=== PATIENT | female | born 1980 | race Caucasian/White ===

== ENCOUNTER 2017-10-31 08:32 | Emergency (ER) | payer SELFPAY ==
[2017-10-31 08:47] LABS: URINE APPEARANCE SL CLOUDY; URINE BILIRUBIN NEGATIVE (NEGATIVE); URINE BLOOD LARGE (NEGATIVE); URINE COLOR YELLOW; URINE GLUCOSE (UA) NEGATIVE (NEGATIVE); URINE KETONE TRACE (NEGATIVE); URINE LEUKOCYTE ESTERASE MODERATE (NEGATIVE); URINE NITRITE POSITIVE (NEGATIVE); URINE UROBILINOGEN 0.2 E.U./dL (0.20 - 1.00)
--- NOTE | 2017-10-31 08:54 | Emergency Department Record ---
History of Present Illness - General Chief complaint: Female Urogenital Problem Stated complaint: UTI Time Seen by Provider: 10/31/17 08:43 Source: Patient Mode of Arrival: Ambulatory Limitations: No limitations - History of Present Illness Initial comments: The patient is here due to dysuria for 5 days. She states she has had some back pain and fever but it is improved today. There is no reported AP, nausea, or vomiting. MD Complaint: Dysuria Onset/Timin -: Days(s) Severity: Moderate Severity scale (1-10): 5 Quality: Other Consistency: Constant Improves with: Medication Worsens with: Other Patient : No Associated Symptoms: Dysuria - Related Data Previous Rx's Medication Instructions Recorded Sulfamethoxazole/Trimethoprim 1 tab PO BID #14 tab 10/31/17 [Bactrim Ds] Allergies Allergy/AdvReac Type Severity Reaction Status Date / Time No Known Drug Allergies Allergy Verified 10/31/17 08:40 Travel Screening - Travel/Exposure Within Last 30 Days Have you traveled within the last 30 days?: No - Travel/Exposure Within Last Year Have you traveled outside the [place] in the last year?: No - Additonal Travel Details Have you been exposed to anyone with a communicable illness?: No - Travel Symptoms Symptom Screening: None Review of Systems Constitutional: Denies: Chills, Fever Eyes: Denies: Eye discharge ENT: Denies: Congestion Respiratory: Denies: Cough, Dyspnea Past Medical History - SOCIAL HISTORY Smoking Status: Current every day smoker Alcohol Use: Heavy Drug Use: None - RESPIRATORY Hx Respiratory Disorders: No - CARDIOVASCULAR Hx Cardio Disorders: No - NEURO Hx Neuro Disorders: No - GI Hx GI Disorders: No - Hx Genitourinary Disorders: No - ENDOCRINE Hx Endocrine Disorders: No - MUSCULOSKELETAL Hx Musculoskeletal Disorders: No - PSYCH Hx Psych Problems: No - HEMATOLOGY/ONCOLOGY Hx Hematology/Oncology Disorders: No Family Medical History Any Significant Family History?: No Physical Exam - General General Appearance: Alert, Oriented x3, Cooperative, No acute distress - Head Head exam: Atraumatic, Normocephalic, Normal inspection - Eye Eye exam: Normal appearance, PERRL - Neck Neck exam: Normal inspection, Full ROM. negative: Tenderness - Respiratory Respiratory exam: Normal lung sounds bilaterally. negative: Respiratory distress - Cardiovascular Cardiovascular Exam: Regular rate, Normal rhythm, Normal heart sounds - GI/Abdominal GI/Abdominal exam: Soft, Normal bowel sounds. negative: Guarding, Pulsatile mass, Rebound, Rigid, Tenderness - Extremities Extremities exam: Normal inspection, Full ROM, Normal capillary refill. negative: Tenderness - Back Back exam: Reports: Normal inspection, Full ROM. Denies: CVA tenderness (R), CVA tenderness (L), Muscle spasm, Rash noted, Tenderness Course Vital Signs 10/31/17 08:41 Temperature 97.7 F Pulse Rate 103 H Respiratory 20 Rate Blood Pressure 132/88 Pulse Ox 100 - Reevaluation(s) Reevaluation #1: I did explain to the patient that it appears she has a UTI. She is to take the Abx and F/U with her PCP if not better. 10/31/17 09:22 Medical Decision Making - Data Complexity MDM Data: Labs Ordered and/or Reviewed (Pos UTI.) Disposition Disposition: Discharge Clinical Impression: Cystitis Disposition: Home, Self-Care Condition: (2) Stable Instructions: Urinary Tract Infection in Women (ED) Additional Instructions: Please take the Bactrim as directed and use Tylenol or Motrin for pain and fever. Please drink plenty of fluids and see your PCP early next week if not better. Return to the ER for any worsening symptoms, pain, fever, or vomiting. Prescriptions: Sulfamethoxazole/Trimethoprim [Bactrim Ds] 1 tab PO BID #14 tab Forms: Patient Portal Access Time of Disposition: 09:08 Quality - Quality Measures Quality Measures: N/A - Blood Pressure Screening View Details: Yes Does Patient Have Any of the Following: No Blood Pressure Classification: Pre-Hypertensive BP Reading Systolic Measurement: 132 Diastolic Measurement: 88 Screening for High Blood Pressure: < Pre-Hypertensive BP, F/U Documented > [ G8950] Pre-Hypertensive Follow-up Interventions: Referral to alternative/primary care provider.
[2017-10-31 08:58] LABS: URINE EPITHELIAL CELLS 21 - 35 (FEW); URINE MUCUS LIGHT; URINE WBC >50 (0-2/hpf)
[2017-10-31 09:05] LABS: HCG,QUALITATIVE URINE NEGATIVE (NEGATIVE)
== END 2017-10-31 09:10 | disposition home or self-care (01) ==
LOC: ER 08:32
DX: N30.01 Acute cystitis with hematuria (principal)
CPT/HCPCS: 81001; 81025; 99282

== ENCOUNTER 2018-05-10 18:43 | Emergency (ER) | payer MEDICAID ==
--- NOTE | 2018-05-10 19:08 | Emergency Department Record ---
History of Present Illness - General Chief Complaint: Ankle/Foot Injury Stated Complaint: R ANKLE INJURY Time Seen by Provider: 05/10/18 18:51 Source: Patient Mode of Arrival: crutches Limitations: No limitations - History of Present Illness Initial Comments: The patient was climbing a tree and jumped down and inverted her R ankle. She was able to walk on it with pain. She denies any other injuries. Complaint: Ankle injury Onset/Timin -: Hour(s) Type of Injury: Unknown Place: Home Severity scale (1-10): 9 Improves With: Immobilization Worsens With: Weight bearing Context: Jumping Associated Symptoms: Snap/pop sensation, Able to partially bear weight - Related Data Home Medications Medication Instructions Recorded Confirmed Last Taken No Home Med [NO HOME MEDS] 05/10/18 05/10/18 Unknown Allergies Allergy/AdvReac Type Severity Reaction Status Date / Time No Known Drug Allergies Allergy Verified 05/10/18 18:47 Travel Screening - Travel/Exposure Within Last 30 Days Have you traveled within the last 30 days?: Yes Location Detail:: [place] - Travel/Exposure Within Last Year Have you traveled outside the [place] in the last year?: No - Additonal Travel Details Have you been exposed to anyone with a communicable illness?: No - Travel Symptoms Symptom Screening: None Review of Systems Constitutional: Denies: Chills, Fever Eyes: Denies: Eye discharge ENT: Denies: Congestion Respiratory: Denies: Cough Past Medical History - SOCIAL HISTORY Smoking Status: Current every day smoker Alcohol Use: Heavy Drug Use: None - RESPIRATORY Hx Respiratory Disorders: No - CARDIOVASCULAR Hx Cardio Disorders: No - NEURO Hx Neuro Disorders: No - GI Hx GI Disorders: No - Hx Genitourinary Disorders: No - ENDOCRINE Hx Endocrine Disorders: No - MUSCULOSKELETAL Hx Musculoskeletal Disorders: No - PSYCH Hx Psych Problems: No - HEMATOLOGY/ONCOLOGY Hx Hematology/Oncology Disorders: No Family Medical History Any Significant Family History?: No Physical Exam - General General Appearance: Alert, Oriented x3, Cooperative, No acute distress - Head Head exam: Atraumatic, Normocephalic, Normal inspection - Eye Eye exam: Normal appearance, PERRL - Extremities Extremities exam: Full ROM, Tenderness (There is mild tenderness over the distal fibula. ), Other (The R ankle is stable with no subluxation. There is no foot tenderness or swelling. The R foot is NVI.). negative: Normal inspection ( There is mild swelling at the distal fibula. ), Joint swelling Course Vital Signs 05/10/18 05/10/18 18:44 18:48 Temperature 98.5 F 98.5 F Pulse Rate 93 H 93 H Respiratory 20 20 Rate Blood Pressure 148/85 148/85 Pulse Ox 97 97 - Reevaluation(s) Reevaluation #1: I did discuss the xray results with the patient and the need for an ankle splint and to be non weight bearing for 3 days. She is to slowly then start to ambulate and is to see her PCP if not better in 5 days. 05/10/18 19:21 05/10/18 19:30 Medical Decision Making - Data Complexity MDM Data: X-Ray Ordered and/or Reviewed (R ankle: Neg for tibia or fibula fx. There is a small avulsion of probably the talus distally. ) Disposition Disposition: Discharge Clinical Impression: Ankle sprain Qualifiers: Encounter type: initial encounter Involved ligament of ankle: unspecified ligament Laterality: right Qualified Code(s): S93.401A - Sprain of unspecified ligament of right ankle, initial encounter Disposition: Home, Self-Care Condition: (2) Stable Instructions: Ankle Sprain (ED) Additional Instructions: Please wear the splint for 3-4 days and do not walk on the R ankle. Use your crutches for walking. Take Ibuprofen for pain. Please see your family doctor if not better in 5 days and return to the ER for any worsening symptoms. Forms: Patient Portal Access Time of Disposition: 19:22 Quality - Quality Measures Quality Measures: N/A - Blood Pressure Screening View Details: Yes Does Patient Have Any of the Following: No Blood Pressure Classification: Pre-Hypertensive BP Reading Systolic Measurement: 148 Diastolic Measurement: 85 Screening for High Blood Pressure: < Pre-Hypertensive BP, F/U Documented > [ G8950] Pre-Hypertensive Follow-up Interventions: Referral to alternative/primary care provider.
--- NOTE | 2018-05-12 09:56 | RADIOLOGY REPORT ---
EXAM: RIGHT ANKLE HISTORY: PAIN. TECHNIQUE: Three views of the right ankle were performed. FINDINGS: There is soft tissue swelling about the ankle joint. There is a small avulsion fracture deformity of the lateral tarsal bones. This is likely related to ligament injury. IMPRESSION: SMALL AVULSION FRACTURE DEFORMITY OF THE LATERAL TARSAL BONES. SOFT TISSUE SWELLING. JOB NUMBER: [id number] [facility]
== END 2018-05-10 19:54 | disposition home or self-care (01) ==
LOC: ER 18:43
DX: S93.401A Sprain of unspecified ligament of right ankle, initial encounter (principal); W13.8XXA Fall from, out of or through other building or structure, initial encounter; Y93.39 Activity, other involving climbing, rappelling and jumping off; Y92.007 Garden or yard of unspecified non-institutional (private) residence as the place of occurrence of the external cause
CPT/HCPCS: 99283

== ENCOUNTER 2018-05-30 17:23 | Emergency (ER) | payer MEDICAID ==
[2018-05-30] MEDS ORDERED: 0.9 % SODIUM CHLORIDE 1000ML 1,000 ML IV ONE (17:50)
[2018-05-30] MEDS ORDERED: ONDANSETRON HCL IV 4 MG/2 ML VIAL IV ONE (17:50)
--- NOTE | 2018-05-30 17:50 | Emergency Department Record ---
History of Present Illness - General Chief Complaint: Abdominal Pain Stated Complaint: FEVER,SHIVERS,STOMACH ACHE Time Seen by Provider: 05/30/18 17:43 Source: Patient Mode of Arrival: Ambulatory Limitations: No limitations - History of Present Illness Initial Comments: Pt with RLQ AP and nausea vomiting, no fever. Ate chicken from local food bank but no others ill from same. Drank "liquor" last night. This AM noted nausea and vomiting, ate sujey chicken again. Vomited. ABD surgery only tubal ligation. This afternoon at a "taco" and did not vomit, drank " a ton" of water on ride over and it "seemed to help". Pt is sexually active with new male partner without condom. No discharge. No urinary freq or pain. MD Complaint: Abdominal pain Onset/Timin -: Days(s) Location: R Flank, RLQ Radiation: Suprapubic Severity: Moderate Severity scale (1-10): 5 Quality: Cramping, Sharp Consistency: Intermittent Improves With: Nothing Worsens With: Nothing Context: Possible food poisoning Associated Symptoms: Nausea, Vomiting - Related Data Additional Female Hx Detail: Surgery Patient : No Previous Rx's Medication Instructions Recorded Metronidazole [Flagyl] 500 mg PO BID 7 Days #14 tablet 05/30/18 Sulfamethoxazole/Trimethoprim 1 each PO BID 7 Days #14 tablet 05/30/18 [Bactrim Ds Tablet] Allergies Allergy/AdvReac Type Severity Reaction Status Date / Time No Known Drug Allergies Allergy Verified 05/10/18 18:47 Review of Systems Constitutional: Denies: Chills, Fever, Weakness Eyes: Denies: Eye pain, Vision change ENT: Denies: Congestion Respiratory: Denies: Cough, Dyspnea Cardiovascular: Denies: Arrhythmia, Chest pain Endocrine: Denies: Fatigue Gastrointestinal: Reports: As per HPI Genitourinary: Denies: Abnormal menses, Discharge, Dysuria, Frequency, Urgency Musculoskeletal: Reports: Back pain. Denies: Arthralgia Skin: Denies: Bruising Neurological: Denies: Abnormal gait, Tremors Psychiatric: Denies: Anxiety Hematological/Lymphatic: Denies: Anemia Past Medical History - SOCIAL HISTORY Smoking Status: Current every day smoker Drug Use: None - RESPIRATORY Hx Respiratory Disorders: No - CARDIOVASCULAR Hx Cardio Disorders: No - NEURO Hx Neuro Disorders: No - GI Hx GI Disorders: No - Hx Genitourinary Disorders: No - ENDOCRINE Hx Endocrine Disorders: No - MUSCULOSKELETAL Hx Musculoskeletal Disorders: No - PSYCH Hx Psych Problems: No - HEMATOLOGY/ONCOLOGY Hx Hematology/Oncology Disorders: No Physical Exam - General General Appearance: Alert, Oriented x3, Cooperative, No acute distress - Head Head exam: Atraumatic - Eye Eye exam: Normal appearance, PERRL, EOMI - ENT ENT exam: Normal exam, Mucous membranes moist, Normal external ear exam, Normal orophraynx, TM's normal bilaterally - Neck Neck exam: Normal inspection - Respiratory Respiratory exam: Normal lung sounds bilaterally. negative: Rhonchi, Wheezes - Cardiovascular Cardiovascular Exam: Regular rate, Normal rhythm, Normal heart sounds - GI/Abdominal GI/Abdominal exam: Soft, Normal bowel sounds, Tenderness. negative: Guarding, Rebound (tender right flank to RLQ ) - Rectal Rectal exam: Deferred - exam: Cervical discharge, cervical motion tenderness (No mass appreciated. ) - Extremities Extremities exam: Normal inspection - Back Back exam: Reports: Normal inspection. Denies: CVA tenderness (R), CVA tenderness (L), Muscle spasm - Neurological Neurological exam: Alert, Normal gait, Oriented X3 - Psychiatric Psychiatric exam: Normal affect, Normal mood - Skin Skin exam: negative: Rash Medical Decision Making - Data Complexity MDM Data: Labs Ordered and/or Reviewed, X-Ray Ordered and/or Reviewed, Discussion of Test Results With Performing Physician - Lab Data Result diagrams: 05/30/18 17:50 05/30/18 17:50 - Radiology Data Radiology results: Report reviewed, Image reviewed Disposition Disposition: Discharge Clinical Impression: Trichomonal cervicitis, Renal colic on right side, Cervicitis Disposition: Home, Self-Care Condition: (2) Stable Instructions: Trichomoniasis (ED), Renal Colic (ED) Additional Instructions: Take Flagyl until gone. Bactrim DS BID 7 days Sexual partner to see physician for evaluation return as needed to ED FM doc recheck in 3 days. Prescriptions: Metronidazole [Flagyl] 500 mg PO BID 7 Days #14 tablet Sulfamethoxazole/Trimethoprim [Bactrim Ds Tablet] 1 each PO BID 7 Days #14 tablet Forms: Patient Portal Access Quality - Quality Measures Quality Measures: N/A - Blood Pressure Screening Does Patient Have Any of the Following: No Blood Pressure Classification: Hypertensive Reading Systolic Measurement: 143 Diastolic Measurement: 93 Screening for High Blood Pressure: Patient Exclusion, Hx of HTN [Y7948]
[2018-05-30 18:11] LABS: BASO % 0.2 % (0-6); EOS % 0.4 % (0-6); HEMATOCRIT 45.1 % (35.0-47.0); HEMOGLOBIN 15.2 gm/dl (11.6-16.0); LYMPH % 10.5 % (16-45); MEAN CELL VOLUME 98.5 fl (81-97); MEAN CORPUSCULAR HEMOGLOBIN 33.2 pg (27-33); MEAN CORPUSCULAR HGB CONC 33.7 g/dl (32-36); MEAN PLATELET VOLUME 11.3 fl (7.4-10.4); MONO % 1.3 % (0-9); PLATELET COUNT 207 K/uL (130-400); RED BLOOD COUNT 4.58 M/uL (3.80-5.40); RED CELL DISTRIBUTION WIDTH 13.7 % (11.5-14.5); WHITE BLOOD COUNT W/O DIFF 10.9 K/uL (4.2-12.2)
[2018-05-30 18:12] LABS: URINE APPEARANCE CLEAR; URINE BILIRUBIN NEGATIVE (NEGATIVE); URINE BLOOD MODERATE (NEGATIVE); URINE COLOR YELLOW; URINE GLUCOSE (UA) NEGATIVE (NEGATIVE); URINE KETONE NEGATIVE (NEGATIVE); URINE LEUKOCYTE ESTERASE MODERATE (NEGATIVE); URINE NITRITE NEGATIVE (NEGATIVE)
[2018-05-30 18:16] LABS: HCG,QUALITATIVE URINE NEGATIVE (NEGATIVE)
[2018-05-30] MEDS ORDERED: KETOROLAC 30 MG/ML VIAL IVP ONE (18:16)
[2018-05-30 18:24] LABS: BLOOD UREA NITROGEN 7 mg/dL (6-20); CREATININE 0.8 mg/dL (0.5-0.9); EST GLOMERULAR FILTRATION RATE > 60 mL/min
[2018-05-30 18:27] LABS: GLUCOSE,RANDOM 121 mg/dL (74-109)
[2018-05-30 18:29] LABS: LIPASE 16 U/L (13-60)
[2018-05-30] MEDS ORDERED: CEFTRIAXONE 250 MG VIAL IM ONE (18:35)
[2018-05-30] MEDS ORDERED: AZITHROMYCIN 500 MG TABLET PO ONE (18:36)
[2018-05-30 18:43] LABS: URINE BACTERIA 3+; URINE EPITHELIAL CELLS 0 - 2 (FEW); URINE RBC 0 - 2 (NONE SEEN); URINE WBC >50 (0-2/hpf)
[2018-05-30] MEDS ORDERED: LIDOCAINE (XYLOCAINE) 1% MPF 10MG/ML 5ML VIAL ONE (18:53)
--- NOTE | 2018-06-02 10:05 | CT SCAN REPORT ---
DATE: 05/30/2018 at 1829 hours. EXAM: CT OF THE ABDOMEN AND PELVIS WITHOUT CONTRAST. HISTORY: Right-sided abdominal pain with nausea for one day. TECHNIQUE: Routine noncontrast helical CT examination of the abdomen and pelvis is performed without oral or intravenous contrast administration. Lack of oral and intravenous contrast utilization limits evaluation of bowel and solid viscera, respectively. COMPARISON: None. FINDINGS: There is minimal dependent atelectasis in each lung base. The lung bases are otherwise clear, and there is no pleural or pericardial effusion. The heart is not enlarged. There is a possible small sliding-type hiatal hernia. The liver, spleen, pancreas, and adrenal glands are normal in appearance. The kidneys are normal in position and grossly normal in size. There is a questionable tiny, nonobstructing calculus within the lateral mid right kidney. No other nephrolithiasis is seen. No renal mass. There is moderate right perinephric fat stranding/edema. No gross hydronephrosis nor hydroureter is seen. No definite calcification noted along the course of either ureter. No intrinsic urinary bladder abnormality. The uterus is normal in position and without mass. No pelvic mass or lymphadenopathy. There is possible trace free fluid in the cul de sac. This is nonspecific. No gross bowel dilatation nor bowel wall thickening is seen. The appendix is at least partially visualized and is normal in appearance. There is a small, fat-filled umbilical hernia. No lytic or blastic bone lesion is seen. IMPRESSION: 1. MODERATE RIGHT PERINEPHRIC FAT STRANDING/EDEMA WITHOUT GROSS HYDRONEPHROSIS NOR OBSTRUCTING CALCULUS VISUALIZED. THIS APPEARANCE MAY RELATE TO CHANGES FROM RECENTLY PASSED CALCULUS. INFECTION COULD ALSO HAVE THIS APPEARANCE. 2. POSSIBLE TINY, NONOBSTRUCTING CALCULUS IN THE MID RIGHT KIDNEY. 3. NORMAL APPENDIX. 4. SMALL, FAT-FILLED UMBILICAL HERNIA. 5. TRACE FREE FLUID IN THE CUL DE SAC IS NONSPECIFIC BUT LIKELY PHYSIOLOGIC. JOB [facility]BER: [id number] [facility]
[2018-06-02 16:22] LABS: GC SPECIMEN TYPE Cervix
== END 2018-05-30 19:27 | disposition home or self-care (01) ==
LOC: ER 17:23
DX: A59.09 Other urogenital trichomoniasis (principal); N13.2 Hydronephrosis with renal and ureteral calculous obstruction; R10.13 Epigastric pain; R11.2 Nausea with vomiting, unspecified; R50.81 Fever presenting with conditions classified elsewhere; I10 Essential (primary) hypertension; F17.210 Nicotine dependence, cigarettes, uncomplicated
CPT/HCPCS: 99284 ×2; 96374; 96372; 96375; 83690; 80048; 81001; 81025; 85027; 74176; Q0111; J1885; J2405; J0696; 87210; J7030

== ENCOUNTER 2019-06-24 12:10 | Emergency (ER) | payer MEDICAID ==
[2019-06-24] MEDS ORDERED: KETOROLAC 60 MG/2 ML VIAL IM STA (12:17)
--- NOTE | 2019-06-24 12:35 | Emergency Department Record ---
History of Present Illness - General Chief complaint: Dental Stated complaint: TOOTH PAIN Time Seen by Provider: 06/24/19 12:17 Source: Patient, RN notes reviewed - History of Present Illness Initial comments: dental pain lower right last molar and the tooth is deayed badly. Patient doesn't remember the name of her dentists and it has been along time since she was seen by the dentist. - Related Data Previous Rx's Medication Instructions Recorded Naproxen [Naprosyn] 500 mg PO Q12H #20 tab. 06/24/19 Penicillin V Potassium 500 mg PO QID #40 tablet 06/24/19 Allergies Allergy/AdvReac Type Severity Reaction Status Date / Time No Known Drug Allergies Allergy Verified 06/24/19 12:32 Review of Systems Reviewed: No additional complaints except as noted below Constitutional: Reports: As per HPI. Denies: Chills, Fever, Malaise, Night sweats, Weakness, Weight change Eyes: Reports: As per HPI. Denies: Eye discharge, Eye pain, Photophobia, Vision change ENT: Reports: As per HPI. Denies: Congestion, Dental pain, Ear pain, Epistaxis, Hearing loss, Throat pain Respiratory: Reports: As per HPI. Denies: Cough, Dyspnea, Hemoptysis, Stridor, Wheezes Cardiovascular: Reports: As per HPI. Denies: Arrhythmia, Chest pain, Dyspnea on exertion, Edema, Murmurs, Orthopnea, Palpitations, Paroxysmal nocturnal dyspnea, Rheumatic Fever, Syncope Endocrine: Reports: As per HPI. Denies: Fatigue, Heat or cold intolerance, Polydipsia, Polyuria Gastrointestinal: Reports: As per HPI. Denies: Abdominal pain, Constipation, Diarrhea, Hematemesis, Hematochezia, Melena, Nausea, Vomiting Genitourinary: Reports: As per HPI. Denies: Abnormal menses, Discharge, Dyspareunia, Dysuria, Frequency, Hematuria, Incontinence, Retention, Urgency Musculoskeletal: Reports: As per HPI. Denies: Arthralgia, Back pain, Gout, Joint swelling, Myalgia, Neck pain Skin: Reports: As per HPI. Denies: Bruising, Change in color, Change in hair/nails, Lesions, Pruritus, Rash Neurological: Reports: As per HPI. Denies: Abnormal gait, Confusion, Headache, Numbness, Paresthesias, Seizure, Tingling, Tremors, Vertigo, Weakness Psychiatric: Reports: As per HPI. Denies: Anxiety, Auditory hallucinations, Dep ression, Homicidal thoughts, Suicidal thoughts, Visual hallucinations Hematological/Lymphatic: Reports: As per HPI. Denies: Anemia, Blood Clots, Easy bleeding, Easy bruising, Swollen glands Past Medical History - SOCIAL HISTORY Smoking Status: Current every day smoker Drug Use: None - RESPIRATORY Hx Respiratory Disorders: No - CARDIOVASCULAR Hx Cardio Disorders: No - NEURO Hx Neuro Disorders: No - GI Hx GI Disorders: No - Hx Genitourinary Disorders: No - ENDOCRINE Hx Endocrine Disorders: No - MUSCULOSKELETAL Hx Musculoskeletal Disorders: No - PSYCH Hx Psych Problems: No - HEMATOLOGY/ONCOLOGY Hx Hematology/Oncology Disorders: No Physical Exam - General General Appearance: Alert, Oriented x3, Cooperative, No acute distress - Head Head exam: Normal inspection - Eye Eye exam: Normal appearance, PERRL Pupils: Normal accommodation - ENT ENT exam: Normal exam, Mucous membranes moist, Normal external ear exam, Normal orophraynx, TM's normal bilaterally Ear exam: Normal external inspection. negative: External canal tenderness Nasal Exam: Normal inspection. negative: Discharge, Sinus tenderness Mouth exam: Normal external inspection, Tongue normal Teeth exam: Normal inspection, Dental caries, Fractured tooth # Throat exam: Normal inspection. negative: Tonsillar erythema, Tonsillar exudate Image of Mouth/Teeth: 1 - decayed tooth ,no pain on touching her tooth with a tongue blade - Neck Neck exam: Normal inspection, Full ROM. negative: Tenderness - Respiratory Respiratory exam: Normal lung sounds bilaterally. negative: Respiratory distress - Cardiovascular Cardiovascular Exam: Regular rate, Normal rhythm, Normal heart sounds - GI/Abdominal GI/Abdominal exam: Soft, Normal bowel sounds. negative: Tenderness - Rectal Rectal exam: Deferred - exam: Deferred - Extremities Extremities exam: Normal inspection, Full ROM, Normal capillary refill. negative: Tenderness - Back Back exam: Reports: Normal inspection, Full ROM. Denies: Muscle spasm, Rash noted, Tenderness - Neurological Neurological exam: Alert, Normal gait, Oriented X3, Reflexes normal - Psychiatric Psychiatric exam: Normal affect, Normal mood - Skin Skin exam: Dry, Intact, Normal color, Warm Course Vital Signs 06/24/19 12:15 Temperature 98.3 F Pulse Rate [ 89 Pulse Ox Probe] Respiratory 24 Rate Blood Pressure 179/139 [Left Arm] Pulse Ox 99 - Reevaluation(s) Reevaluation #1: feeling some better 06/24/19 12:40 Disposition Clinical Impression: Toothache Disposition: Home, Self-Care Condition: (1) Good Instructions: Toothache (ED) Additional Instructions: follow up with dentist in 1-2 days warm water rinses Prescriptions: Naproxen [Naprosyn] 500 mg PO Q12H #20 tab.dr Penicillin V Potassium 500 mg PO QID #40 tablet Forms: Patient Portal Access Time of Disposition: 12:36 Quality - Quality Measures Quality Measures: N/A - Blood Pressure Screening Does Patient Have Any of the Following: No Blood Pressure Classification: Hypertensive Reading Systolic Measurement: 179 Diastolic Measurement: 139 Screening for High Blood Pressure: < Pre-Hypertensive BP, F/U Documented > [G8950] Pre-Hypertensive Follow-up Interventions: Referral to alternative/primary care provider.
== END 2019-06-24 12:54 | disposition home or self-care (01) ==
LOC: ER 12:10
DX: K02.9 Dental caries, unspecified (principal); F17.210 Nicotine dependence, cigarettes, uncomplicated
CPT/HCPCS: 96372; 99284; J1885

== ENCOUNTER 2019-11-05 20:21 | Emergency (ER) | payer MEDICAID ==
[2019-11-05 21:17] LABS: ABSOLUTE NEUTROPHIL COUNT 12.13; HEMATOCRIT 46.9 % (35.0-47.0); HEMOGLOBIN 15.7 gm/dl (11.6-16.0); MEAN CELL VOLUME 96.7 fl (81-97); MEAN CORPUSCULAR HEMOGLOBIN 32.4 pg (27-33); MEAN CORPUSCULAR HGB CONC 33.5 g/dl (32-36); MEAN PLATELET VOLUME 10.3 fl (7.4-10.4); PLATELET COUNT 273 K/uL (130-400); RED BLOOD COUNT 4.85 M/uL (3.80-5.40); RED CELL DISTRIBUTION WIDTH 13.6 % (11.5-14.5); WHITE BLOOD COUNT W/O DIFF 15.5 K/uL (4.2-12.2)
[2019-11-05 21:27] LABS: BLOOD UREA NITROGEN 9 mg/dL (6-20)
[2019-11-05 21:28] LABS: CREATININE 0.6 mg/dL (0.5-0.9); EST GLOMERULAR FILTRATION RATE > 60 mL/min
[2019-11-05 21:30] LABS: GLUCOSE,RANDOM 110 mg/dL (74-109)
--- NOTE | 2019-11-05 21:38 | Emergency Department Record ---
History of Present Illness - General Chief complaint: Abscess Stated complaint: SORE ON NECK Time Seen by Provider: 11/05/19 20:48 Source: Patient Mode of Arrival: Ambulatory Limitations: No limitations - History of Present Illness Initial comments: pt had a sore on her neck which she picked at and squeezed and now it is red and has swelling. it is very tender complaint: Abscess/boil Onset/Timin -: Days(s) Location: Neck Severity: Severe Severity scale (1-10): 8 Quality: Aching, Other Consistency: Constant, Getting worse Improves with: None Worsens with: None Context: None Associated symptoms: Denies other symptoms Treatments Prior to Arrival: Attempted to drain pus at home, Antibiotic, Other - Related Data Previous Rx's Medication Instructions Recorded Clindamycin HCl 450 mg PO Q8HR #60 capsule 11/05/19 Hydrocodone/Acetaminophen [White 1 each PO Q6HR #7 tablet 11/05/19 5-325 Tablet] Allergies Allergy/AdvReac Type Severity Reaction Status Date / Time No Known Drug Allergies Allergy Verified 11/05/19 20:32 Travel Screening - Travel/Exposure Within Last 30 Days Have you traveled within the last 30 days?: No - Travel/Exposure Within Last Year Have you traveled outside the [place] in the last year?: No - Additonal Travel Details Have you been exposed to anyone with a communicable illness?: No - Travel Symptoms Symptom Screening: None Review of Systems Reviewed: No additional complaints except as noted below Constitutional: Reports: As per HPI. Denies: Chills, Fever, Malaise, Night sweats, Weakness, Weight change Eyes: Reports: As per HPI. Denies: Eye discharge, Eye pain, Photophobia, Vision change ENT: Reports: As per HPI. Denies: Congestion, Dental pain, Ear pain, Epistaxis, Hearing loss, Throat pain Respiratory: Reports: As per HPI. Denies: Cough, Dyspnea, Hemoptysis, Stridor, Wheezes Cardiovascular: Reports: As per HPI. Denies: Arrhythmia, Chest pain, Dyspnea on exertion, Edema, Murmurs, Orthopnea, Palpitations, Paroxysmal nocturnal dyspnea, Rheumatic Fever, Syncope Endocrine: Reports: As per HPI. Denies: Fatigue, Heat or cold intolerance, Polydipsia, Polyuria Gastrointestinal: Reports: As per HPI. Denies: Abdominal pain, Constipation, Diarrhea, Hematemesis, Hematochezia, Melena, Nausea, Vomiting Genitourinary: Reports: As per HPI. Denies: Abnormal menses, Discharge, Dyspareunia, Dysuria, Frequency, Hematuria, Incontinence, Retention, Urgency Musculoskeletal: Reports: As per HPI. Denies: Arthralgia, Back pain, Gout, Joint swelling, Myalgia, Neck pain Skin: Reports: As per HPI. Denies: Bruising, Change in color, Change in hair/nails, Lesions, Pruritus, Rash Neurological: Reports: As per HPI. Denies: Abnormal gait, Confusion, Headache, Numbness, Paresthesias, Seizure, Tingling, Tremors, Vertigo, Weakness Psychiatric: Reports: As per HPI. Denies: Anxiety, Auditory hallucinations, Depression, Homicidal thoughts, Suicidal thoughts, Visual hallucinations Hematological/Lymphatic: Reports: As per HPI. Denies: Anemia, Blood Clots, Easy bleeding, Easy bruising, Swollen glands Past Medical History - SOCIAL HISTORY Smoking Status: Current every day smoker Alcohol Use: Occasional Drug Use Detail:: Marijuana - RESPIRATORY Hx Respiratory Disorders: No - CARDIOVASCULAR Hx Cardio Disorders: No - NEURO Hx Neuro Disorders: No - GI Hx GI Disorders: No - Hx Genitourinary Disorders: No - ENDOCRINE Hx Endocrine Disorders: No - MUSCULOSKELETAL Hx Musculoskeletal Disorders: No - PSYCH Hx Psych Problems: No - HEMATOLOGY/ONCOLOGY Hx Hematology/Oncology Disorders: No Family Medical History Any Significant Family History?: No Physical Exam - General General Appearance: Alert, Oriented x3, Cooperative, Mild distress - Head Head exam: Normal inspection Image of Face/Head: 1 - swelling, erythema, white center, nonfluctuent - Eye Eye exam: Normal appearance, PERRL, EOMI Pupils: Normal accommodation - ENT ENT exam: Normal exam, Mucous membranes moist, Normal external ear exam, Normal orophraynx Ear exam: Normal external inspection. negative: External canal tenderness Nasal Exam: Normal inspection. negative: Discharge, Sinus tenderness Mouth exam: Normal external inspection, Tongue normal Teeth exam: Normal inspection. negative: Dental caries Throat exam: Normal inspection. negative: Tonsillar erythema, Tonsillar exudate - Neck Neck exam: Full ROM, Tenderness - Respiratory Respiratory exam: Normal lung sounds bilaterally. negative: Respiratory distress - Cardiovascular Cardiovascular Exam: Normal rhythm, Normal heart sounds, Tachycardia - GI/Abdominal GI/Abdominal exam: Soft, Normal bowel sounds. negative: Tenderness - Rectal Rectal exam: Deferred - exam: Deferred - Extremities Extremities exam: Normal inspection, Full ROM, Normal capillary refill. negative: Tenderness - Back Back exam: Reports: Normal inspection, Full ROM. Denies: Muscle spasm, Rash noted, Tenderness - Neurological Neurological exam: Alert, CN II-XII intact, Normal gait, Oriented X3 - Psychiatric Psychiatric exam: Normal affect, Normal mood - Skin Skin exam: Dry, Intact, Normal color, Warm Course Vital Signs 11/05/19 20:26 Temperature 97.9 F Pulse Rate 117 H Respiratory 20 Rate Blood Pressure 166/119 Pulse Ox 97 Medical Decision Making - Lab Data Result diagrams: 11/05/19 21:02 11/05/19 21:02 Lab Results 11/05/19 11/05/19 Range/Units 21:02 21:02 WBC 15.5 H (4.2-12.2) K/uL RBC 4.85 (3.80-5.40) M/uL Hgb 15.7 (11.6-16.0) gm/dl Hct 46.9 (35.0-47.0) % MCV 96.7 (81-97) fl MCH 32.4 (27-33) pg MCHC 33.5 (32-36) g/dl RDW 13.6 (11.5-14.5) % Plt Count 273 (130-400) K/uL MPV 10.3 (7.4-10.4) fl Eosinophils % Not Reportable Basophils % Not Reportable Absolute Neutrophils 12.13 Sodium 136 (136-145) mmol/L Potassium 3.9 (3.4-4.5) mmol/L Chloride 99 (98-107) mmol/L Carbon Dioxide 22.0 (22-29) mmol/L Anion Gap 15.0 (7-16) BUN 9 (6-20) mg/dL Creatinine 0.6 (0.5-0.9) mg/dL Estimated GFR > 60 mL/min Random Glucose 110 H (74-109) mg/dL Calcium 9.3 (8.6-10.0) mg/dL Disposition Disposition: Discharge Clinical Impression: Cellulitis of neck Disposition: Home, Self-Care Condition: (1) Good Instructions: Cellulitis (ED) Additional Instructions: recheck in the morning. return sooner if worse. sleep elevated. moist heat. Prescriptions: Hydrocodone/Acetaminophen [White 5-325 Tablet] 1 each PO Q6HR #7 tablet Clindamycin HCl 450 mg PO Q8HR #60 capsule Forms: Patient Portal Access Quality - Quality Measures Quality Measures: N/A - Blood Pressure Screening Does Patient Have Any of the Following: No Blood Pressure Classification: Hypertensive Reading Systolic Measurement: 166 Diastolic Measurement: 119 Screening for High Blood Pressure: < First Hypertensive BP, F/U Documented > [G8950] First Hypertensive Follow-up Interventions: Follow-up with rescreen GT 1 day and LT 4 weeks.
[2019-11-05] MEDS ORDERED: CLINDAMYCIN 600MG/50ML PREMIX 600 MG/50 ML BAG IVPB ONE (21:53)
--- NOTE | 2019-11-05 21:53 | CT SCAN REPORT ---
EXAMINATION: CT Neck Soft Tissues with IV Contrast EXAM DATE: 11/05/2019 9:33 PM TECHNIQUE: Standard protocol CT images of the neck were obtained with intravenous contrast. Sagittal and coronal images were reconstructed. IV Contrast: The amount and type of contrast are recorded in t he medical record. INDICATION: infection COMPARISON: None ENCOUNTER: Not applicable FINDINGS: There is inflammatory fat stranding in the submental region with thickening of the platysma bilateral ly and mildly enlarged submandibular lymph nodes. Periapical abscess involving the second posterior m ost tooth of the right lower jaw with large dental Donna best seen on sagittal image 35. Large periap ical abscess involving teeth 9 and 10. The nasopharynx oropharynx and hypopharynx are unremarkable. Laryngeal structures are symmetric. Vascular structures are patent. Mildly enlarged level 2 lymph nodes bilaterally in the internal jugul ar distribution measuring up to 1.7 cm in size. The parotid glands submandibular glands and thyroid a nd are normal. Mild emphysematous change at the lung apices. Moderate to severe degenerative disc disease at C7-T1. IMPRESSION: 1. Submandibular facial cellulitis. No soft tissue abscess although there is a prominent dental Donna as well as periapical abscess involving the second posterior most tooth of the right lower jaw. 2. Reactive cervical adenopathy. 3. Additional periapical abscess involving teeth 9 and 10. Dictated by: Jose Torres MD on 11/05/2019 9:45 PM. .
[2019-11-05] MEDS ORDERED: HYDROCODONE/APAP 5/325MG TABLET PO ONE (22:01)
== END 2019-11-05 22:40 | disposition home or self-care (01) ==
LOC: ER 20:21
DX: L03.221 Cellulitis of neck (principal); F17.210 Nicotine dependence, cigarettes, uncomplicated
CPT/HCPCS: 99284 ×2; 96374; 80048; 85027; 70491; Q9967

== ENCOUNTER 2019-11-06 13:24 | Observation (INO) | payer MEDICAID ==
[2019-11-06] MEDS ORDERED: CLINDAMYCIN 600MG/50ML PREMIX 600 MG/50 ML BAG IVPB ONE (13:39)
[2019-11-06] MEDS ORDERED: KETOROLAC 30 MG/ML VIAL IVP ONE (13:42)
--- NOTE | 2019-11-06 13:42 | Emergency Department Record ---
History of Present Illness - General Chief Complaint: Wound, check Stated Complaint: RE CHECK Time Seen by Provider: 11/06/19 13:30 Source: Patient Mode of arrival: Ambulatory Limitations: No limitations - History of Present Illness Initial Comments: The patient is here for recheck of a submental cellulitis that she has had for a few days. She was here in the ER last evening and had a CT scan that demonstrated cellulitis but no abscess. She did receive a dose of IV Abx's and was supposed to return today for recheck. Now she states the area is worse with increasing pain, swelling, and redness. There is no pain or difficulty swallowing, or any fever, MARIA ISABEL or trouble breathing. MD Complaint: Wound re-check Onset/Timin -: Days(s) Initial Visit For: Abscess Returns Today for: Wound recheck Symptoms Since Prior Visit: Worsening pain, Worsening swelling Treatments Prior to Arrival: Given antibiotics on initial visit, Given pain medications on initial visit - Related Data Previous Rx's Medication Instructions Recorded Clindamycin HCl 450 mg PO Q8HR #60 capsule 11/05/19 Hydrocodone/Acetaminophen [Elmer 1 each PO Q6HR #7 tablet 11/05/19 5-325 Tablet] Allergies Allergy/AdvReac Type Severity Reaction Status Date / Time No Known Drug Allergies Allergy Verified 11/06/19 13:35 Travel Screening - Travel/Exposure Within Last 30 Days Have you traveled within the last 30 days?: No - Travel/Exposure Within Last Year Have you traveled outside the [place] in the last year?: No - Additonal Travel Details Have you been exposed to anyone with a communicable illness?: No - Travel Symptoms Symptom Screening: None Review of Systems Constitutional: Denies: Chills, Fever Eyes: Denies: Eye discharge ENT: Denies: Congestion Respiratory: Denies: Cough, Dyspnea Past Medical History - SOCIAL HISTORY Smoking Status: Current every day smoker Alcohol Use: Occasional Drug Use: Occasional Drug Use Detail:: Marijuana - RESPIRATORY Hx Respiratory Disorders: No - CARDIOVASCULAR Hx Cardio Disorders: No - NEURO Hx Neuro Disorders: No - GI Hx GI Disorders: No - Hx Genitourinary Disorders: No - ENDOCRINE Hx Endocrine Disorders: No - MUSCULOSKELETAL Hx Musculoskeletal Disorders: No - PSYCH Hx Psych Problems: No - HEMATOLOGY/ONCOLOGY Hx Hematology/Oncology Disorders: No Family Medical History Any Significant Family History?: No Physical Exam - General General Appearance: Alert, Oriented x3, Cooperative, No acute distress - Head Head exam: Atraumatic, Normocephalic, Normal inspection Image of Face/Head: 1 - Area of swelling and tenderness. - Eye Eye exam: Normal appearance, PERRL - ENT Throat exam: Normal inspection. negative: Tonsillar erythema, Tonsillar exudate - Neck Neck exam: Full ROM, Tenderness. negative: Normal inspection (There is significant erythema, tenderness and edema to the submental area.) - Respiratory Respiratory exam: Normal lung sounds bilaterally. negative: Respiratory distress - Cardiovascular Cardiovascular Exam: Regular rate, Normal rhythm, Normal heart sounds - GI/Abdominal GI/Abdominal exam: Soft, Normal bowel sounds. negative: Tenderness - Extremities Extremities exam: Normal inspection, Full ROM, Normal capillary refill. negative: Tenderness - Neurological Neurological exam: Alert. negative: Motor sensory deficit - Psychiatric Psychiatric exam: negative: Anxious Course Vital Signs 11/06/19 13:28 Temperature 98.2 F Pulse Rate 107 H Respiratory 20 Rate Blood Pressure 147/104 Pulse Ox 99 - Reevaluation(s) Reevaluation #1: Due to the condition clearly worsening I did recommend hospital admission and the patient also agrees with the plan. I then did discuss the case with Dr. Resendez and he does accept the patient for admission. 11/06/19 13:51 Medical Decision Making - Data Complexity MDM Data: Labs Ordered and/or Reviewed, Review and Summary of Old Record Discussed (I did review the CT scan from lat night which did demonstrate the Cellulitis.) - Lab Data Result diagrams: 11/06/19 13:50 Disposition Disposition: Admit Clinical Impression: Cellulitis of neck Disposition: Still a Patient at [facility] Decision to Admit: Admit from ER Decision to Admit Date: 11/06/19 Decision to Admit Time: 13:52 Accepting Physician: Mal Time Discussed w/Accepting Physician: 13:52 Condition: (2) Stable Forms: Patient Portal Access Time of Disposition: 13:52 Quality - Quality Measures Quality Measures: N/A - Blood Pressure Screening View Details: Yes Does Patient Have Any of the Following: No Blood Pressure Classification: Hypertensive Reading Systolic Measurement: 147 Diastolic Measurement: 104 Screening for High Blood Pressure: < First Hypertensive BP, F/U Documented > [G8950] First Hypertensive Follow-up Interventions: Referral to alternative/primary care provider.
[2019-11-06 14:04] LABS: ABSOLUTE NEUTROPHIL COUNT 11.46; BASO % 0.3 % (0-6); EOS % 0.6 % (0-6); HEMATOCRIT 45.5 % (35.0-47.0); HEMOGLOBIN 15.2 gm/dl (11.6-16.0); LYMPH % 13.1 % (16-45); MEAN CORPUSCULAR HEMOGLOBIN 32.4 pg (27-33); MEAN CORPUSCULAR HGB CONC 33.4 g/dl (32-36); MEAN PLATELET VOLUME 10.1 fl (7.4-10.4); PLATELET COUNT 238 K/uL (130-400); RED BLOOD COUNT 4.69 M/uL (3.80-5.40); RED CELL DISTRIBUTION WIDTH 13.5 % (11.5-14.5); WHITE BLOOD COUNT W/O DIFF 14.3 K/uL (4.2-12.2)
[2019-11-06] MEDS ORDERED: ACETAMINOPHEN 325 MG TAB PO PRN (14:57)
--- NOTE | 2019-11-06 16:32 | History & Physical ---
History of Present Illness - Date of Service Date of Service for History & Physical: 11/06/19 - History of Present Illness Admitting Diagnosis: 1. Acute Anterior Neck Cellulitis History of Present Illness: Ms. Golden is a 39 y/o female with worsening facial and neck swelling for the past 3 days. The patient says that it started as a small pimple and says the area became more red, swollen and painful. She denies fevers, chills, throat pain or headaches. She was seen at [facility] ED last evening and had a CT scan of the neck/face which did note cellulitis of the submandible but no abscess. She received 1 dose of IV antibiotics and was to return to ED for evaluation this morning. On examination in ED today she reports worsening of symptoms with more redness, swelling and pain. But denies difficulty with breathing, swallowing or fever. The patient has no other medical conditions and does not take and medications. She is being admitted to the medical floor for IV antibiotic therapy. ED course: Vitals: BP 147/104, HR 107, T 98.2, Sats 99% RA CT of neck: evidence of cellulitis of the submandible but no abscess. Labs: CRP 7.9, WBCs 14K PCP: Family Physician in [place]. Travel Screening - Travel/Exposure Within Last 30 Days Have you traveled within the last 30 days?: No - Travel/Exposure Within Last Year Have you traveled outside the [place] in the last year?: No - Additonal Travel Details Have you been exposed to anyone with a communicable illness?: No - Travel Symptoms Symptom Screening: None Review of Systems Constitutional: Denies: Chills, Fever Eyes: Denies: Eye discharge ENT: Denies: Congestion Respiratory: Denies: Cough, Dyspnea Past Medical History - SOCIAL HISTORY Smoking Status: Current every day smoker Alcohol Use: Heavy Alcohol Use Comment: Last drink Vodka 11/05/19 a pint/day 3-4 times a week Drug Use: Occasional Drug Use Detail:: Marijuana - RESPIRATORY Hx Respiratory Disorders: No - CARDIOVASCULAR Hx Cardio Disorders: No - NEURO Hx Neuro Disorders: No - GI Hx GI Disorders: No - Hx Genitourinary Disorders: No - ENDOCRINE Hx Endocrine Disorders: No - MUSCULOSKELETAL Hx Musculoskeletal Disorders: No - PSYCH Hx Psych Problems: No - HEMATOLOGY/ONCOLOGY Hx Hematology/Oncology Disorders: No Family Medical History Any Significant Family History?: No H&P Meds/Allergies - Allergies Allergies: Allergies Allergy/AdvReac Type Severity Reaction Status Date / Time No Known Drug Allergies Allergy Verified 11/06/19 13:35 - Home Medications Previous Rx's Medication Instructions Recorded Clindamycin HCl 450 mg PO Q8HR #60 capsule 11/05/19 Hydrocodone/Acetaminophen [Madison 1 each PO Q6HR #7 tablet 11/05/19 5-325 Tablet] - Active Medications Active Medications: Current Medications Acetaminophen (Tylenol 325mg) 650 mg PO Q6H PRN PRN Reason: PAIN - MILD(1-4)/FEVER Hydrocodone Bitart/Acetaminophen (Madison 5mg/325mg) 1 each PO Q6HR PRN PRN Reason: PAIN - SEVERE (8-10) Clindamycin Phosphate (Cleocin 600 [id number]) 600 mg in 50 mls @ 100 mls/hr IVPB Q8H JAIMEE Ketorolac Tromethamine (Toradol) 15 mg IVP Q8H PRN PRN Reason: PAIN - MODERATE (5-7) Physical Exam - Vital Signs Vital Signs: Vital Signs - Last 24 Hrs Temp Pulse Pulse Resp BP BP Pulse Ox 11/06/19 14:59 98.2 F 107 H 20 147/104 99 11/06/19 14:57 97.5 F L 101 H 16 159/101 100 11/06/19 13:28 98.2 F 107 H 20 147/104 99 - General General Appearance: Alert, Oriented x3, Cooperative, No acute distress Limitations: No limitations - Head Head exam: Atraumatic, Normocephalic, Other (erythema of the right sumbandible ) - Eye Eye exam: Normal appearance, PERRL - ENT Throat exam: Normal inspection. negative: Tonsillar erythema, Tonsillar exudate - Neck Neck exam: Tenderness (mildy tender ). negative: Normal inspection (There is significant erythema, tenderness and edema to the submental area.), Lymphadenopathy, Thyromegaly - Respiratory Respiratory exam: Normal lung sounds bilaterally. negative: Respiratory distress - Cardiovascular Cardiovascular Exam: Regular rate, Normal rhythm, Normal heart sounds Peripheral Pulses: 3+: Radial (R), Radial (L), Dorsalis Pedis (R), Dorsalis Pedis (L) - GI/Abdominal GI/Abdominal exam: Soft, Normal bowel sounds. negative: Tenderness - Extremities Extremities exam: Normal inspection, Full ROM, Normal capillary refill. negative: Tenderness - Neurological Neurological exam: Alert. negative: Motor sensory deficit - Psychiatric Psychiatric exam: negative: Anxious Results - Labs Result Diagrams: 11/06/19 13:50 Labs Last 24 Hours: Laboratory Results - last 24 hr 11/06/19 11/06/19 13:50 13:50 WBC 14.3 H RBC 4.69 Hgb 15.2 Hct 45.5 MCV 97.0 MCH 32.4 MCHC 33.4 RDW 13.5 Plt Count 238 MPV 10.1 Gran % 80.0 Lymphocytes % 13.1 L Monocytes % 6.0 Eosinophils % 0.6 Basophils % 0.3 Absolute Neutrophils 11.46 C-Reactive Protein 7.94 H VTE H&P Assessment - Risk for VTE Risk for VTE: Yes Risk Level: Very Low Risk Assessment Date: 11/06/19 Risk Assessment Time: 16:50 VTE Orders Placed or Will Be Placed: No VTE Reason for No Prophylaxis: Not Indicated (No risk factors pt ambulatory) Plan - Inpatient Certification Inpatient Certification: Admit to inpatient care: Based on my medical assessment, after consideration of patient's risk factors (age, co-morbidities and patient presenting symptoms and acuity), I expect that this patient will remain in the hospital greater than or equal to two midnights and that the services needed warrant inpatient care because: Facial cellulitis Estimated length of stay: 72 hours The patient may reasonably be expected to be discharged or transferred to a hospital within 96 hours after admission to [facility] I certify that my determination is in accordance with my understanding of Medicare requirements for reasonable and necessary inpatient services. 11/06/19 16:26 - Detailed Diagnosis and Plan (1) Cellulitis of face Current Visit: Yes Status: Acute Base Code: L03.211 - CELLULITIS OF FACE Comment: 11/06/19: - Non-purulent cellulitis of the submandible w/o abcscess. - CT neck: confirming cellulitis w/o abscess. - Not able to express any fluid to send for culture. - WBCs 14K, tacycardia. - Continue Clindamycin 600mg IVP Q6H PRN, warm compresses applied PRN - Pain control with Acetaminophen 650mg Q6H PRN, Madison 5/325mg Q6H PRN. (2) Elevated blood pressure reading Current Visit: Yes Status: Acute Base Code: R03.0 - ELEVATED BLOOD-PRESSURE READING, W/O DIAGNOSIS OF HTN Comment: 11/06/19: - Persistent elevation in BP. Possibly 2/2 to pain. - Ordering Lisinopril 20mg daily for BP control. (3) DVT prophylaxis Current Visit: Yes Status: Acute Base Code: Z29.9 - ENCOUNTER FOR PROPHYLACTIC MEASURES, UNSPECIFIED Comment: 11/06/19: - Patient is low risk of DVT. - Ambulation is encouraged. (4) Full code status Current Visit: Yes Status: Acute Base Code: Z78.9 - OTHER SPECIFIED HEALTH STATUS Comment: 11/06/19: - The patient is full code status.
[2019-11-06] MEDS: LISINOPRIL 20 MG TABLET PO SCH (17:43)
[2019-11-06] MEDS: HYDROCODONE/APAP 5/325MG TABLET PO PRN ×2 (17:44→23:40)
[2019-11-06] MEDS: KETOROLAC 30 MG/ML VIAL IVP PRN (20:09)
[2019-11-06] MEDS: CLINDAMYCIN 600MG/50ML PREMIX 600 MG/50 ML BAG IVPB SCH (21:56)
[2019-11-07] MEDS: CLINDAMYCIN 600MG/50ML PREMIX 600 MG/50 ML BAG IVPB SCH (05:40)
[2019-11-07] MEDS: HYDROCODONE/APAP 5/325MG TABLET PO PRN ×2 (06:21→15:04)
[2019-11-07 06:39] LABS: ABSOLUTE NEUTROPHIL COUNT 9.07; BASO % 0.3 % (0-6); EOS % 1.6 % (0-6); GRAN % 77.3 % (47-80); HEMATOCRIT 44.9 % (35.0-47.0); HEMOGLOBIN 14.5 gm/dl (11.6-16.0); LYMPH % 14.4 % (16-45); MEAN CELL VOLUME 98.7 fl (81-97); MEAN CORPUSCULAR HEMOGLOBIN 31.9 pg (27-33); MEAN CORPUSCULAR HGB CONC 32.3 g/dl (32-36); MEAN PLATELET VOLUME 10.4 fl (7.4-10.4); MONO % 6.4 % (0-9); PLATELET COUNT 235 K/uL (130-400); RED BLOOD COUNT 4.55 M/uL (3.80-5.40); RED CELL DISTRIBUTION WIDTH 13.6 % (11.5-14.5); WHITE BLOOD COUNT W/O DIFF 11.7 K/uL (4.2-12.2)
[2019-11-07 06:52] LABS: BLOOD UREA NITROGEN 7 mg/dL (6-20); CREATININE 0.6 mg/dL (0.5-0.9); EST GLOMERULAR FILTRATION RATE > 60 mL/min; GLUCOSE,RANDOM 118 mg/dL (74-109)
--- NOTE | 2019-11-07 07:50 | RADIOLOGY REPORT ---
EXAMINATION: Single View Chest EXAM DATE: 11/07/2019 7:27 AM TECHNIQUE: Portable AP upright chest radiography obtained 11/07/2019 7:19 AM INDICATION: Left chest pain COMPARISON: None. FINDINGS: The heart and pulmonary vasculature are normal in size. There are no acute pulmonary infiltrates or s izable pleural effusions. No acute bony abnormality is seen. IMPRESSION: No radiographic evidence of acute pulmonary disease. Dictated by: Mike Suarez MD on 11/07/2019 7:46 AM. .
[2019-11-07] MEDS: LISINOPRIL 20 MG TABLET PO SCH ×2 (08:16→09:11)
--- NOTE | 2019-11-07 12:45 | Physician Progress Note ---
Subjective - Date Date of Physician Progress Note: 11/07/19 - Subjective Subjective Comment: Worsening facial swelling and erythema with spread to the neck and upper chest. The patient reports that she feels soreness of the neck muscles but not really pain. She denies shortness of breath, chest pain, or facial pain. Objective - Vital Signs Vital Signs: Vital Signs - Last 24 Hrs Temp Pulse Pulse Resp BP BP Pulse Ox 11/07/19 07:30 98.2 F 78 14 145/101 97 11/07/19 05:00 98.3 F 82 16 141/86 99 11/07/19 01:00 98.3 F 88 16 134/76 99 11/06/19 21:00 98.5 F 86 16 143/89 99 11/06/19 17:30 98.2 F 88 16 135/88 99 11/06/19 14:59 98.2 F 107 H 20 147/104 99 11/06/19 14:57 97.5 F L 101 H 16 159/101 100 11/06/19 13:28 98.2 F 107 H 20 147/104 99 - General General Appearance: Alert, Oriented x3, Cooperative, No acute distress Limitations: No limitations - Head Head exam: Atraumatic, Normocephalic, Other (erythema of the right sumbandible with new extension to the post auricle and cervical neck. No lymph nodes appreciated on exam) - Eye Eye exam: Normal appearance, PERRL - ENT Throat exam: Normal inspection. negative: Tonsillar erythema, Tonsillar exudate - Neck Neck exam: Tenderness (mildy tender ). negative: Normal inspection (There is significant erythema, tenderness and edema to the submental area.), Lymphadenopathy, Thyromegaly - Respiratory Respiratory exam: Normal lung sounds bilaterally. negative: Respiratory distress - Cardiovascular Cardiovascular Exam: Regular rate, Normal rhythm, Normal heart sounds Peripheral Pulses: 3+: Radial (R), Radial (L), Dorsalis Pedis (R), Dorsalis Pedis (L) - GI/Abdominal GI/Abdominal exam: Soft, Normal bowel sounds. negative: Tenderness - Extremities Extremities exam: Normal inspection, Full ROM, Normal capillary refill. negative: Tenderness - Neurological Neurological exam: Alert. negative: Motor sensory deficit - Psychiatric Psychiatric exam: negative: Anxious Assessment and Plan - Assessment and Plan (1) Cellulitis of face Current Visit: Yes Status: Acute Base Code: L03.211 - CELLULITIS OF FACE Comment: 11/07/19: - Worsening of face/neck infection despite being on IV Clindamycin. - Non-purulent cellulitis of the submandible w/o abcscess. - CT neck: confirming cellulitis w/o abscess. - Not able to express any fluid to send for culture. - WBCs 14K --> 11.7, - D/C Clindamycin 600mg IVP Q6H PRN, and start Vonacomycin [id number], warm compresses applied PRN - Pain control with Acetaminophen 650mg Q6H PRN, [place] 5/325mg Q6H PRN. (2) HTN (hypertension) Current Visit: Yes Status: Acute Base Code: I10 - ESSENTIAL (PRIMARY) HYPERTENSION Comment: 11/07/19: - The patient reports history of hypertension but she has never been on medications for it. - Continue Lisinopril 20mg and add HCTZ 12.5 mg daily. - Patient education on DASH diet and follow up with PCP for monitoring and dose titration. (3) DVT prophylaxis Current Visit: Yes Status: Acute Base Code: Z29.9 - ENCOUNTER FOR PROPHYLACTIC MEASURES, UNSPECIFIED Comment: 11/07/19: - Patient is low risk of DVT. - Ambulation is encouraged. (4) Full code status Current Visit: Yes Status: Acute Base Code: Z78.9 - OTHER SPECIFIED HEALTH STATUS Comment: 11/07/19: - The patient is full code status. Results - Labs Result Diagrams: 11/07/19 06:15 11/07/19 06:15 Labs Last 24 Hours: Laboratory Results - last 24 hr 11/06/19 11/06/19 11/07/19 13:50 13:50 06:15 WBC 14.3 H 11.7 RBC 4.69 4.55 Hgb 15.2 14.5 Hct 45.5 44.9 MCV 97.0 98.7 H MCH 32.4 31.9 MCHC 33.4 32.3 RDW 13.5 13.6 Plt Count 238 235 MPV 10.1 10.4 Gran % 80.0 77.3 Lymphocytes % 13.1 L 14.4 L Monocytes % 6.0 6.4 Eosinophils % 0.6 1.6 Basophils % 0.3 0.3 Absolute Neutrophils 11.46 9.07 Sodium Potassium Chloride Carbon Dioxide Anion Gap BUN Creatinine Estimated GFR Random Glucose Calcium C-Reactive Protein 7.94 H 11/07/19 06:15 WBC RBC Hgb Hct MCV MCH MCHC RDW Plt Count MPV Gran % Lymphocytes % Monocytes % Eosinophils % Basophils % Absolute Neutrophils Sodium 137 Potassium 3.7 Chloride 100 Carbon Dioxide 27.0 Anion Gap 10.0 BUN 7 Creatinine 0.6 Estimated GFR > 60 Random Glucose 118 H Calcium 8.9 C-Reactive Protein DVT/PE Assessment - Risk for VTE Risk for VTE: No Risk Level: Very Low Risk Assessment Date: 11/06/19 Risk Assessment Time: 16:50 VTE Orders Placed or Will Be Placed: No VTE Reason for No Prophylaxis: Not Indicated (No risk factors pt ambulatory) - Active Medicaitons Current Medications: Current Medications Acetaminophen (Tylenol 325mg) 650 mg PO Q6H PRN PRN Reason: PAIN - MILD(1-4)/FEVER Hydrocodone Bitart/Acetaminophen ([place] 5mg/325mg) 1 each PO Q6HR PRN PRN Reason: PAIN - SEVERE (8-10) Last Admin: 11/07/19 06:21 Dose: 1 each Documented by: VANCOMYCIN 1GM/200ML PREMIX (Vancomycin 1 Gram/200 Ml Bag) 1 gm in 200 mls @ 200 mls/hr IVPB Q12H JAIMEE Ketorolac Tromethamine (Toradol) 15 mg IVP Q8H PRN PRN Reason: PAIN - MODERATE (5-7) Last Admin: 11/06/19 20:09 Dose: 15 mg Documented by: Lisinopril (Zestril) 20 mg PO DAILY [facility] Last Admin: 11/07/19 09:11 Dose: Not Given Documented by: AMI Plan - Labs Result Diagrams: 11/07/19 06:15 11/07/19 06:15
[2019-11-07] MEDS: VANCOMYCIN 1GM/200ML PREMIX 1 GM/200 ML PIGGYBACK IVPB SCH (13:35)
[2019-11-07] MEDS: HYDROCHLOROTHIAZIDE 12.5 MG CAPSULE PO SCH (15:04)
[2019-11-08] MEDS: VANCOMYCIN 1GM/200ML PREMIX 1 GM/200 ML PIGGYBACK IVPB SCH ×2 (00:09→11:45)
[2019-11-08] MEDS: HYDROCODONE/APAP 5/325MG TABLET PO PRN ×2 (05:36→11:47)
[2019-11-08 06:21] LABS: ABSOLUTE NEUTROPHIL COUNT 6.64; BASO % 0.4 % (0-6); EOS % 2.6 % (0-6); GRAN % 68.9 % (47-80); HEMATOCRIT 45.5 % (35.0-47.0); HEMOGLOBIN 14.8 gm/dl (11.6-16.0); LYMPH % 22.5 % (16-45); MEAN CELL VOLUME 98.1 fl (81-97); MEAN CORPUSCULAR HEMOGLOBIN 31.9 pg (27-33); MEAN CORPUSCULAR HGB CONC 32.5 g/dl (32-36); MEAN PLATELET VOLUME 10.3 fl (7.4-10.4); MONO % 5.6 % (0-9); PLATELET COUNT 245 K/uL (130-400); RED BLOOD COUNT 4.64 M/uL (3.80-5.40); RED CELL DISTRIBUTION WIDTH 13.6 % (11.5-14.5); WHITE BLOOD COUNT W/O DIFF 9.6 K/uL (4.2-12.2)
[2019-11-08 06:31] LABS: BLOOD UREA NITROGEN 7 mg/dL (6-20); CREATININE 0.6 mg/dL (0.5-0.9); EST GLOMERULAR FILTRATION RATE > 60 mL/min; GLUCOSE,RANDOM 111 mg/dL (74-109)
[2019-11-08] MEDS: HYDROCHLOROTHIAZIDE 12.5 MG CAPSULE PO SCH ×2 (08:40→09:06)
[2019-11-08] MEDS: LISINOPRIL 20 MG TABLET PO SCH ×2 (08:40→09:06)
[2019-11-08] MEDS: KETOROLAC 30 MG/ML VIAL IVP PRN (08:53)
--- NOTE | 2019-11-08 13:02 | Discharge Summary ---
Providers Discharge Summary Date: 11/08/19 Date of admission: 11/06/19 14:35 Attending physician: WESLEY TELLEZ Physical Exam - Vital Signs Vital Signs: Vital Signs - Last 24 Hrs Temp Pulse Resp BP Pulse Ox 11/08/19 12:00 90 12 147/101 11/08/19 08:21 97.6 F 75 12 146/102 98 11/08/19 05:00 98.7 F 68 16 156/96 99 11/07/19 21:00 16 11/07/19 20:59 98.5 F 89 16 131/89 99 11/07/19 17:00 97.9 F 89 16 148/97 99 11/07/19 13:00 97.3 F L 92 H 17 145/105 92 L - General General Appearance: Alert, Oriented x3, Cooperative, No acute distress Limitations: No limitations - Head Head exam: Atraumatic, Normocephalic, Other (improved erythema of the right sumbandible with receding rash of neck. No lymph nodes appreciated on exam) - Eye Eye exam: Normal appearance, PERRL - ENT Throat exam: Normal inspection. negative: Tonsillar erythema, Tonsillar exudate - Neck Neck exam: Full ROM, Tenderness (mildy tender ). negative: Normal inspection (Improved erythema of manbile/neck, non-tender ), Lymphadenopathy, Thyromegaly - Respiratory Respiratory exam: Normal lung sounds bilaterally. negative: Respiratory distress - Cardiovascular Cardiovascular Exam: Regular rate, Normal rhythm, Normal heart sounds Peripheral Pulses: 3+: Radial (R), Radial (L), Dorsalis Pedis (R), Dorsalis Pedis (L) - GI/Abdominal GI/Abdominal exam: Soft, Normal bowel sounds. negative: Tenderness - Extremities Extremities exam: Normal inspection, Full ROM, Normal capillary refill. negative: Tenderness - Neurological Neurological exam: Alert. negative: Motor sensory deficit - Psychiatric Psychiatric exam: negative: Anxious Hospitalization - Hospitalization Admission Diagnosis: 1. Acute Anterior Neck Cellulitis - Problem List/Discharge Diagnosis (1) Cellulitis of face Current Visit: Yes Status: Acute Base Code: L03.211 - CELLULITIS OF FACE Comment: 11/08/19: - Marked improvement of facial cellulitis. - Non-purulent cellulitis of the submandible w/o abcscess. - CT neck: confirming cellulitis w/o abscess. - Not able to express any fluid to send for culture. - WBCs 14K --> 11.7,-->9K - Vanacomycin [id number], doses. warm compresses applied PRN - Preliminary wound cx: gram + cocci in clusters. - Pain control with Acetaminophen 650mg Q6H PRN, [place] 5/325mg Q6H PRN. (2) HTN (hypertension) Current Visit: Yes Status: Acute Base Code: I10 - ESSENTIAL (PRIMARY) HYPERTENSION Comment: 11/08/19: - Labile BP over the past 24 hours. - Continue Lisinopril 20mg and add HCTZ 12.5 mg daily. - Patient education on DASH diet and follow up with PCP for monitoring and dose titration. (3) DVT prophylaxis Current Visit: Yes Status: Acute Base Code: Z29.9 - ENCOUNTER FOR PROPHYLACTIC MEASURES, UNSPECIFIED Comment: 11/08/19: - Patient is low risk of DVT. - Ambulation is encouraged. (4) Full code status Current Visit: Yes Status: Acute Base Code: Z78.9 - OTHER SPECIFIED HEALTH STATUS Comment: 11/08/19: - The patient is full code status. - Hospitalization Course Disposition: Home, Self-Care Hospital Course: Ms. Golden is a 39 y/o female with worsening facial and neck swelling for the past 3 days. The patient says that it started as a small pimple and says the area became more red, swollen and painful. She denies fevers, chills, throat pain or headaches. She was seen at [facility] ED last evening and had a CT scan of the neck/face which did note cellulitis of the submandible but no abscess. She received 1 dose of IV antibiotics and was to return to ED for evaluation this morning. On examination in ED today she reports worsening of symptoms with more redness, swelling and pain. But denies difficulty with breathing, swallowing or fever. The patient has no other medical conditions and does not take and medications. She is being admitted to the medical floor for IV antibiotic therapy. 10/29/19: The patient had worsening of her facial cellulitis yesterday despite receiving Clindamycin IV. Medication was changed to IV Vancomycin 1gm Q12H and she has had three doses. She was also noted to have ongoing elevations in blood pressure and was started on monotherapy with Lisinopril and then dual therapy with Hydrocholorothiazide. The blood pressure has improved but she still has diastolic blood pressure elevations. On examination this morning the patient reports feeling better and that her neck pain has improved since yesterday. She has not had dysphagia, edema of the neck or headaches. ED course: Vitals: BP 147/104, HR 107, T 98.2, Sats 99% RA CT of neck: evidence of cellulitis of the submandible but no abscess. Labs: CRP 7.9, WBCs 14K PCP: Family Physician in [place]. Procedures: Imaging and X-Rays 11/07/19 06:59 CHEST 1 VIEW [RAD] Stat Abnormal Labs: Abnormal Lab Results 11/06/19 11/06/19 11/07/19 Range/Units 13:50 13:50 06:15 WBC 14.3 H (4.2-12.2) K/uL MCV 98.7 H (81-97) fl Lymphocytes % 13.1 L 14.4 L (16-45) % Random Glucose (74-109) mg/dL C-Reactive Protein 7.94 H (<0.5) mg/dL 11/07/19 11/08/19 11/08/19 Range/Units 06:15 06:10 06:10 WBC (4.2-12.2) K/uL MCV 98.1 H (81-97) fl Lymphocytes % (16-45) % Random Glucose 118 H 111 H (74-109) mg/dL C-Reactive Protein (<0.5) mg/dL Condition at Discharge: (2) Stable Discharge Medications - Discharge Medications Prescriptions: Hydrocodone/Acetaminophen [[place] 5-325 Tablet] 1 each PO Q6HR #7 tablet Sulfamethoxazole/Trimethoprim [Bactrim Ds Tablet] 1 each PO BID #14 tablet Lisinopril/Hydrochlorothiazide [Lisinopril-Hctz 20-12.5 mg Tab] 1 each PO DAILY #14 tablet Home Medications: Ambulatory Orders Hydrocodone/Acetaminophen [[place] 5-325 Tablet] 1 each PO Q6HR #7 tablet 11/08/19 [Last Taken Unknown] Lisinopril/Hydrochlorothiazide [Lisinopril-Hctz 20-12.5 mg Tab] 1 each PO DAILY #14 tablet 11/08/19 [Last Taken Unknown] Sulfamethoxazole/Trimethoprim [Bactrim Ds Tablet] 1 each PO BID #14 tablet 11/08/19 [Last Taken Unknown] Discharge Plan - Discharge Instructions Activity at Discharge: Resume Usual Activities As Tolerated Diet at Discharge: Low Salt Diet Additional Instructions: Medications you should take when you return home are: Bactrim DS, #1 tab twice daily x 7 days. Lisinopri-HCTZ 20-12.5mg, #1 tab daily. [place] 5/325mg every 6H as needed for pain and swelling. For refills of medications and follow up please schedule and appointment with your primary care provider within 1 week of discharge. If you have difficulty swallowing, or have throat swelling please go to the nearest ED. Quality Measures - Quality Measures Quality Measures: Documentation of Current Medications in Medical Record, Screening for High Blood Pressure and F/U Documented - Current Medications Quality Measure: Measure #130: Documentation of Current Medications Documentation of Current Medications: <Current Medications Documented/Reviewed> [[id number]] - Blood Pressure Screening Quality Measure: Screening for High Blood Pressure and Follow-Up Documented Does Patient Have Any of the Following: Active Dx of HTN Blood Pressure Classification: Hypertensive Reading Systolic Measurement: 147 Diastolic Measurement: 104 Screening for High Blood Pressure: Patient Exclusion, Hx of HTN [G9744] - Elder Abuse Suspicion Index EASI Reference Information: Aliya MIRANDA, Edilia C, Giovany D, Saira Hoff.Development and validation of a tool to assist physicians identification of elder abuse: The Elder Abuse Suspicion Index (EASI ). Journal of Elder Abuse and Neglect, 2008; 20 (3): 276-300.
== END 2019-11-08 14:00 | disposition home or self-care (01) ==
LOC: ER 13:24 → MEDSURG 14:35 → INTOOBSV 14:35
PROVIDERS: ADMIT Internal Medicine; ATTEND Internal Medicine
DX: L03.221 Cellulitis of neck (principal); L03.211 Cellulitis of face; R03.0 Elevated blood-pressure reading, without diagnosis of hypertension; F17.210 Nicotine dependence, cigarettes, uncomplicated; Z48.00 Encounter for change or removal of nonsurgical wound dressing
CPT/HCPCS: 71045; 80048; 85025; 86140; 96365; 96375; 99217; 99220; 99225; 99285; J1885; J3370